=== PATIENT | female | born 1935 | race Caucasian/White ===

== ENCOUNTER 2016-08-21 06:48 | Day surgery (SDC) | payer MEDICARE, BC ==
[~2016-08-21] VITALS: Ht 162.6 cm; Wt 64.1 kg
[2016-08-21 07:07] VITALS: BP 164/87; PULSE 80; RESP 18; TEMP 97.8; O2SAT 97
[2016-08-21] MEDS ORDERED: CLON0.1T PO (07:07)
[2016-08-21] MEDS ORDERED: LEVO75TA3 PO (07:07)
[2016-08-21] MEDS ORDERED: FOLI800T PO (07:08)
[2016-08-21] MEDS ORDERED: NAPR1TAB98 PO (07:15)
[2016-08-21] MEDS ORDERED: ALBU6.7H INH (07:18)
[2016-08-21] MEDS ORDERED: CHLORHEXIDINE GLUCONATE 2 % 1 PACK (2 CLOTHS) TOPICAL SCH (07:45)
[2016-08-21] MEDS ORDERED: VANCOMYCIN 1000 MG/NS 250 ML - implanted port/tunneled catheter IV SCH ×2 (07:45)
[2016-08-21] MEDS ORDERED: POVIDONE IODINE 5% (ANTISEPSIS KIT) 4 APPLICATIONS EACH NARE SCH (07:45)
[2016-08-21 07:55] LABS: APTT (PATIENT) 27.3 SEC (24.3-30.1); INTERNATIONAL NORMALIZED RATIO 0.9 RATIO; PROTHROMBIN TIME - PATIENT 10.1 SEC (9.8-11.6)
[2016-08-21] MEDS ORDERED: SODIUM CHLORIDE 0.9% 1000 ML IV SCH (08:00)
[2016-08-21] MEDS ORDERED: MIDAZOLAM HCL 5 MG/5 ML VIAL ONE (08:13)
[2016-08-21] MEDS ORDERED: fentaNYL CITRATE 250 MCG/5 ML AMP ONE (08:14)
[2016-08-21] MEDS ORDERED: LIDOCAINE 1%/EPINEPHrine 1:100,000 SOLN 20 ML VIAL ONE (08:38)
--- NOTE | 2016-08-21 09:22 | PD.RAD ---
Post Procedure Progress Note Pre Procedure Diagnosis: (1) Leukemia Post Procedure Diagnosis: (1) Leukemia Procedure Date: Aug 21, 2016 Supervising Radiologist: Paxton Panda Proceduralist/Assist: RT Yonathan(R)() Anesthesia: Conscious Sedation Plan of Activity Patient to Unit: ROPU Patient Condition: Good See PACS Report for procedural detail/treatment Central Venous Access Device Procedure 1 Right Internal Jugular Infusaport Placement single lumen Paxton Panda MD Aug 21, 2016 09:22
[2016-08-21] MEDS ORDERED: IOHEXOL 350 MG/ML 50 ML BTL (for Cath Lab) IV ONE (09:29)
[2016-08-21] MEDS ORDERED: SODIUM CHLORIDE 0.9% FLUSH 10 ML FLUSH IVF PRN (09:30)
[2016-08-21 09:33] VITALS: BP 186/80; PULSE 69; RESP 18; TEMP 97.7; O2SAT 97
[2016-08-21] MEDS ORDERED: ACETAMINOPHEN 325 MG TAB PO ONE (10:00)
[2016-08-21 10:03] VITALS: BP 174/90; PULSE 74; RESP 18; O2SAT 97
[2016-08-21 10:33] VITALS: BP 159/81; PULSE 74; RESP 17; O2SAT 95
--- NOTE | 2016-08-21 10:39 | RADRPT ---
EXAM DATE/TIME: 08/21/2016 08:49 [facility] COMPARISON: No previous studies available for comparison. 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 MEDICAL HISTORY : 1.Lymphoid leukemia 2.Thrombocytopenia 3.Hypogammaglobulinemia 4.Anemia 5.Arthritis 6.Blood clots 7.Hypothyroidism SURGICAL HISTORY : 1.Splenectomy 2.Left hip surgery 3.Tonsillectomy 4.Tubal ligation ENCOUNTER: Initial ACUITY: 1 month PAIN SCORE: 0/10 FLUORO TIME: 2.4 minutes IMAGE SERIES: 2 SEDATION TIME: 30 minutes CONTRAST: 05 cc Omnipaque (iohexol) 350 ACCESS: Right internal jugular vein SEDATION: 1.) 2.5 mg midazolam (Versed) IV 2.) 125 mcg fentanyl (Sublimaze) IV Prophylactic antibiotics were administered with appropriate pre-procedure timing. Vancomycin within 2 hours of procedure, Ancef (or alternative) within 1 hour of procedure. DEVICE: 1. 8 Polish single lumen Angiodynamics power port PROCEDURE : 1. Continuous pulse oximetry and EKG monitoring. 2. Intravenous conscious sedation. 3. Ultrasound guidance for venous access. 4. Fluoroscopic guided implantable central venous port placement. The patient was placed supine. The neck was prepped in sterile fashion. Full sterile technique was u sed, including cap, mask, sterile gloves and gown, and a large sterile sheet. Hand hygiene and 2% ch lorhexidine Betadine was utilized per protocol for cutaneous antisepsis with appropriate dry time for site. The skin and subcutaneous tissues were infiltrated with local anesthetic solution. Under direct ultrasound guidance, central venous access was accomplished in the targeted vessel. The ultrasound images depicting access guidance were stored and saved to PACS for permanent record. A s ubcutaneous pocket was created using blunt dissection. The port was introduced to the pocket. The c atheter tubing was fed through a subcutaneous tunnel to the venotomy site. The catheter tubing was c ut to a suitable length and then was introduced through a valved Peel-Away sheath and positioned with catheter tubing tip at the cavo-atrial junction level. The pocket incision was closed with subcutic ular Vicryl suture. Steri-Strips were applied. The port was flushed and locked with heparin solutio n per protocol. Sterile dressing was applied to the site. The patient tolerated the procedure well. Conscious sedation was performed with the prescribed dosages and duration as above in the presence of an independent trained radiology nurse to assist in the monitoring of the patient. EKG and oximetry remained stable throughout the procedure. The patient tolerated the procedure well and there were no complications. The patient was sent to post anesthesia recovery in stable condition. CONCLUSION: Uncomplicated ultrasound and fluoroscopic guided implanted central venous port catheter placement as described in detail above. An 8 Polish Power port was placed. aPxton Panda MD on August 21, 2016 at 10:20 Board Certified Radiologist. This report was verified electronically.
[2016-08-21 11:33] VITALS: BP 156/72; PULSE 72; RESP 18; O2SAT 96
== END 2016-08-21 11:35 | disposition home or self-care (01) ==
LOC: HROP 06:48 → HRIP 06:52 → HROP 11:35
PROVIDERS: ATTEND Internal Medicine
DX: C91.90 Lymphoid leukemia, unspecified not having achieved remission (principal); D69.6 Thrombocytopenia, unspecified; D80.1 Nonfamilial hypogammaglobulinemia; D64.9 Anemia, unspecified; E03.9 Hypothyroidism, unspecified; I74.9 Embolism and thrombosis of unspecified artery; M19.90 Unspecified osteoarthritis, unspecified site; Z01.818 Encounter for other preprocedural examination; Z01.810 Encounter for preprocedural cardiovascular examination
CPT/HCPCS: 36561; 76937; 77001; 85610; 85730; 99152; 99153; C1788; J1642; J2250; J3010; J3370; J7030; J7050; Q9967